=== PATIENT | female | born 1950 | race Caucasian/White ===

== ENCOUNTER → 2018-01-30 | Outpatient (CLI) | payer OTHER | END | disposition home or self-care (01) | LOC: PCVCCLINIC 15:40 | PROVIDERS: ATTEND Internal Medicine Cardiovascular Disease | DX: I25.10 Atherosclerotic heart disease of native coronary artery without angina pectoris (principal); K55.9 Vascular disorder of intestine, unspecified; E78.5 Hyperlipidemia, unspecified; I10 Essential (primary) hypertension; F17.210 Nicotine dependence, cigarettes, uncomplicated; Z95.1 Presence of aortocoronary bypass graft; Z79.82 Long term (current) use of aspirin | CPT/HCPCS: 80061; 93005; G0463 ==

== ENCOUNTER → 2018-02-16 | Outpatient (CLI) | payer OTHER ==
[~2018-02-16] MED LIST: DIAZEPAM 10 MG TABLET. ONE; EPTIFIBATIDE BOLUS 2,000 MCG/ML 10ML VIAL. IV ONE; HEPARIN for ARTERIAL LINE 1,500 ML ONE; HEPARIN for SUB-Q USE 5,000 UNIT/ML VIAL. SQ ONE; IODIXANOL 270 MG/ML 100 ML VIAL. ONE; IOHEXOL 350 MG/ML 100 ML VIAL. ONE; IOHEXOL 350 MG/ML 50 ML VIAL. ONE; IV NORMAL SALINE 1000ML BAG 1,000 ML ONE; LIDOCAINE 1%/EPI 1:100,000 20 ML VIAL. ONE; MIDAZOLAM HCL/PF 2 MG/2 ML VIAL. ONE; NITROGLYCERIN PREMIX 0 ML IV ONE; diphenhydrAMINE 50 MG/ML VIAL ONE; fentaNYL PF VIAL 100 MCG/2 ML VIAL ONE; hydrALAZINE 20 MG/ML VIAL. ONE
--- NOTE | 2018-02-16 17:08 | PCVCINTER ---
EXAM: 1. AORTOGRAM AND BILATERAL LOWER EXTREMITY RUNOFF ANGIOGRAM 2. BILATERAL RENAL ANGIOGRAPHY 3. COMPLETE MESENTERIC ANGIOGRAPHY INDICATION: Peripheral arterial disease. Coronary artery disease. Weight loss. Abdominal pain. Hypertension. Renal atherosclerosis. No prior catheter based angiographic study is available. A full diagnostic angiogram study is performed today and the decision to intervene is based on this diagnostic study. PROCEDURE: Procedure and risks of angiography intervention is appropriate including limb loss stroke and were discussed with the patient's family and consent obtained. The patient's right groin was prepped in the normal sterile fashion. IV conscious sedation was used throughout procedure with appropriate monitoring from 10:30 AM through 11:30 AM. Ultrasound was used to interrogate the right groin and showed the right common femoral artery to be patent. A permanent spot film was obtained. Under ultrasound guidance access into the right common femoral artery was obtained and a 5 Kinyarwanda sheath was placed. Through this a 5 Kinyarwanda flush catheter was placed into the abdominal aorta at the level of the renal arteries and AP aortogram was performed. Catheter was positioned at the aortic bifurcation and both oblique views of the pelvis were obtained. Catheter was positioned into the right external iliac artery and right leg runoff angiography was performed. Catheter was exchanged for a visceral catheter was placed into the right renal arteries and right renal angiograms obtained. Catheter was placed into the the left renal arteries and left renal angiograms were obtained. Catheter was placed in the celiac axis and celiac angiogram obtained. Catheter was placed in the superior mesenteric artery SMA angiogram obtained. Catheter was placed into the inferior mesenteric artery and IMTIAZ angiogram obtained. Catheter was advanced to the level of the left external iliac artery and left leg runoff angiography was obtained. Dr. Mccarty joined the procedure and he performed coronary angiography. Please see his separate dictation for full details. Catheters and wires removed. Sheath was removed and hemostasis obtained using the FISH device. No immediate complications. FINDINGS: Aortogram: There is one right and one left renal artery. Moderate calcific plaque mid/distal infrarenal abdominal aorta without significant stenosis. The origins of the celiac axis and superior mesenteric artery are well seen and show good patency. Mild stenosis proximal inferior mesenteric artery. Pelvis: Irregular plaque upper right and left common iliac arteries does not cause significant stenosis. Both internal iliac arteries are patent. The right and left external iliac arteries are patent. The right and left common femoral and profunda femoral arteries are patent. Right renal artery: Mild plaque proximal is not cause significant stenosis. Left renal artery: Tapered stenosis proximal/mid main renal artery results in 50% stenosis not felt to be critically flow-limiting. Right leg: Superficial femoral artery is widely patent in its proximal and midportion. The junction of the superficial femoral artery and popliteal artery is a 30% stenosis not felt to be flow-limiting. Popliteal artery otherwise patent. The anterior tibial artery shows satisfactory patency throughout. The peroneal artery shows mild stenosis proximally and becomes small in size in this distal portion. Mild stenosis proximal posterior tibial artery with 70% stenosis mid to distal posterior tibial artery. Left leg: Moderate plaque distal superficial femoral artery causing only minimal stenosis. Popliteal artery is patent. 60% stenosis proximal anterior tibial artery which is otherwise widely patent into moderate-sized dorsalis pedis. 60% stenosis proximal posterior tibial artery. Vessel otherwise showing satisfactory patency throughout. Tibioperoneal trunk and peroneal artery show satisfactory patency although the peroneal artery is small distally. Celiac [place]: Celiac trunk shows good patency. Common hepatic artery shows mild stenosis. 80% stenosis proximal gastroduodenal artery. Moderate plaque throughout the splenic artery without flow-limiting stenosis. Proper hepatic artery shows moderate scattered plaque without high-grade stenosis. Superior mesenteric artery: Proximal vessel shows good patency. Midportion of the vessel shows tapered 50-60% stenosis not felt to be critically flow-limiting. The right colic branch shows 60% stenosis proximally. 70% stenosis near the origin of a jejunal branch. Inferior mesenteric artery: 50% tapered stenosis at the origin of the vessel. Areas of 60% stenosis proximal sigmoid branch of the inferior mesenteric artery. 70% stenosis at the origin of the left colic branch of the inferior mesenteric artery. The more distal branches are patent. IMPRESSION: The celiac distribution shows adequate patency throughout except there is an 80% stenosis in the proximal gastroduodenal branch which is unlikely to cause clinical symptoms. The superior mesenteric artery shows 60% stenosis in its midportion not critically flow-limiting. There are several of its branches which shows 60-70% stenoses most of which are near branch points and not readily amenable to revascularization percutaneously. I doubt the severity of the stenosis accounts for the patient's symptoms. 50% stenosis proximal inferior mesenteric artery with again 1670% stenoses of its dominant branches of borderline hemodynamic significance. 50% left renal artery stenosis is not flow-limiting. Bilateral infrapopliteal arterial occlusive disease as reviewed above. LOC:[id number]
--- NOTE | 2018-02-16 18:01 | PCVCINTER ---
APPROVED REPORT Study performed: 02/16/2018 11:21:19 Patient Details Patient Status: Out-Patient Room #: 2 The patient is a 67 year-old Female Event Personnel Osman Wei RT(R), Rut Tobias RN, Shy Mejia RT(R)() Risk Factors Arterial HypertensionDysplipidemia (Type: 1), Hypercholesterolemia, Last Creatanine 1.1Tobacco History (Current/Recent(w/in 1 year)) Previous Procedures/Diagnoses Previous CABG, Previous [place] Procedure Narrative The right coronary system was accessed and visualized with a JR4 catheter. The left coronary system was accessed and visualized with a JL4 catheter. The left ventricle was accessed and visualized with a Angled Pigtail catheter. Left ventricular/Aortic Valve gradient assessed via catheter pullback. Left ventriculogram was performed in ESP[place] projection. Closure device was deployed with a 6 Fr FISH. Hemostasis was obtained with manual pressure following sheath removal without any complications. The patient tolerated the procedure well and there were no complications associated with the procedure. There was no hematoma. Coronary Angiography The patient's coronary anatomy is left dominant. Diagnostic Cath Left Ctts40-44% LM stenosis LADThe LAD was occluded at its origin. Patent left internal mammary to the LAD. Mild to moderate mid LAD plaquing beyond the distal anastomotic site. Single, occluded vein graft at its origin CircumflexDominant circumflex with 30-40% proximal stenosis OM150% first OM branch stenosis. Distal 60-70% stenoses in the same OM1 [id number]% ostial OM 2 stenosis KH524-74% distal circumflex stenosis before a terminal marginal branch Right CoronaryThe right coronary was small, nondominant and angiographically normal Left Ventriculography The left ventricle is normal in size with normal contractility. The left ventricular ejection fraction is estimated to be 60-65%. Left ventricular wall motion abnormalities are not present. There is no mitral insufficiency. Hemodynamics The aortic pressure is 137/58 mmHg with a mean of 91 mmHg. The left ventricular pressure is 121/2 mmHg with a mean of 11 mmHg. Conclusion 1. Normal global and regional left ventricular systolic function. EF 65% 2. 20-30% LM stenosis 3. Occlusion of the proximal LAD. Patent BARTH to the LAD 4. Moderate diffuse dominant circumflex disease 5. Small, normal non-dominant RCA 6. Occluded single SVG Recommendations Aggressive Medical Therapy
== END | disposition home or self-care (01) ==
LOC: PCVCINTER 09:16
PROVIDERS: ATTEND Internal Medicine
DX: I70.1 Atherosclerosis of renal artery (principal); I25.10 Atherosclerotic heart disease of native coronary artery without angina pectoris; I70.0 Atherosclerosis of aorta; I70.8 Atherosclerosis of other arteries; I70.292 Other atherosclerosis of native arteries of extremities, left leg; I10 Essential (primary) hypertension; I25.2 Old myocardial infarction; Z95.1 Presence of aortocoronary bypass graft; Z90.49 Acquired absence of other specified parts of digestive tract; Z90.710 Acquired absence of both cervix and uterus; Z98.890 Other specified postprocedural states; Z82.49 Family history of ischemic heart disease and other diseases of the circulatory system; Z82.3 Family history of stroke; F17.210 Nicotine dependence, cigarettes, uncomplicated; Z88.5 Allergy status to narcotic agent; Z88.6 Allergy status to analgesic agent; Z79.899 Other long term (current) drug therapy; Z79.82 Long term (current) use of aspirin
CPT/HCPCS: 36245; 36252; 75716; 75726; 93459; 99152; 99153; J0360; J1200; J1644; J2250; J3010; J3490; J7030; Q9967; J0690; J1327